=== PATIENT | male | born 2000 | race Caucasian/White ===

== ENCOUNTER 2021-05-30 16:32 | Emergency (ER) | payer OTHER ==
[~2021-05-30] VITALS: Ht 182.9 cm; Wt 88.2 kg
[2021-05-30 16:40] VITALS: BP 130/67
[2021-05-30] MEDS ORDERED: IBUPROFEN 800 MG TAB PO ONE (20:55)
[2021-05-30 21:54] LABS: MONO REFLEX EBV COMP NEGATIVE (NEGATIVE)
[2021-05-30] MEDS ORDERED: AUGM875T28 PO (21:59)
[2021-05-30] MEDS ORDERED: AUGMENTIN 875 MG TAB PO ONE (22:00)
[2021-06-01 13:08] LABS: EBV AB TO NUCLEAR ANTIGEN <18.0 U/mL (0.0-17.9); EBV VIRAL CAPSID AG IgM <36.0 U/mL (0.0-35.9)
== END 2021-05-30 22:27 | disposition home or self-care (01) ==
LOC: M ED 16:32
DX: J03.90 Acute tonsillitis, unspecified (principal)